=== PATIENT | female | born 1970 | race Caucasian/White ===

== ENCOUNTER 2022-01-04 20:33 | Emergency (ER) | payer BC ==
[2022-01-04 21:06] LABS: Absolute Neutrophil Ct (ANC) 4.55 x10^3/uL (1.4-6.9); Basophil (Absolute #) 0.05 x10^3/uL (0-0.4); Eosinophil % 3.6 % (0.00-5.0); Eosinophil (Absolute #) 0.27 x10^3/uL (0-0.5); Hematocrit 40.9 % (35-47); Hemoglobin 13.9 g/dL (12.0-16.0); Lymphocyte (Absolute #) 2.04 x10^3/uL (1.0-4.6); Lymphocytes % 27.4 % (24.0-44.0); Mean Cell Volume 90.9 fL (78-100); Mean Corpuscular Hemoglobin 30.9 pg (26-32); Mean Platelet Volume 11.7 fL (7.5-11.0); Monocyte (Absolute #) 0.51 x10^3/uL (0.0-1.3); Monocytes % 6.8 % (0.0-12.0); Neutrophil % 61.1 % (36.0-66.0); Platelet Count 183 x10^3/uL (150-450); Red Cell Distribution Width 12.4 % (11.5-14.0); White Blood Count 7.5 x10^3/uL (4.0-10.5)
[2022-01-04 21:23] LABS: ALBUMIN 3.8 g/dL (3.5-5.0); ALKALINE PHOSPHATASE 175 U/L (38-126); ANION GAP 14.3 MEQ/L (5-15); BLOOD UREA NITROGEN 14 mg/dL (7-17); CHLORIDE 103 mmol/L (98-107); Calcium 8.8 mg/dL (8.4-10.2); Carbon Dioxide 23 mmol/L (22-30); Creatinine 1 0.64 mg/dL (0.52-1.04); EST GLOMERULAR FILTRATION RATE > 60.0 ML/MIN; Glucose 266 mg/dL (74-106); Potassium 3.8 mmol/L (3.5-5.1); SGOT/AST 43 U/L (14-36); SGPT/ALT 28 U/L (0-35); SODIUM 136 mmol/L (137-145); Total Protein 7.2 g/dL (6.3-8.2)
[2022-01-04 21:25] LABS: Amphetamine,Urine NEGATIVE (NEGATIVE); Barbiturate,Urine NEGATIVE (NEGATIVE); Benzodiazepine,Urine NEGATIVE (NEGATIVE); Cocaine,Urine NEGATIVE (NEGATIVE); Methadone,Urine NEGATIVE (NEGATIVE); Opiate,Urine NEGATIVE (NEGATIVE); PCP,Urine NEGATIVE (NEGATIVE); THC,Urine NEGATIVE (NEGATIVE)
[2022-01-04 21:26] LABS: INR 0.97 (0.8-3.0); PROTIME 10.3 SECONDS (9.4-12.5); PTT 24.1 SECONDS (25.1-36.5)
[2022-01-04] MEDS ORDERED: BABY ASPIRIN 81 MG CHEW PO ONE (22:09)
[2022-01-04 22:49] LABS: Appearance SLIGHTLY CLOUDY (CLEAR); Bilirubin NEGATIVE (NEGATIVE); Glucose 500 mg/dL (NEGATIVE); Ketones NEGATIVE (NEGATIVE); Nitrite NEGATIVE (NEGATIVE); Protein,Urine Dip NEGATIVE (Negative); RBC NEGATIVE Ery/ul (0-5); Specific Gravity 1.025 (1.005-1.025); Urobilinogen 0.2 mg/dL (0-1)
[2022-01-04 22:50] LABS: Dipstick done @ ? MAIN LAB
[2022-01-04 22:52] LABS: Epithelial Cells FEW /HPF (FEW); Mucus SLIGHT /HPF (NEGATIVE); RBC 0-2 /HPF (0-2)
[2022-01-04 22:57] LABS: Urine Cultured Indicated? NO
[2022-01-04] MEDS ORDERED: Activase 100 MG IV STA (23:17)
--- NOTE | 2022-01-04 23:30 | ERPHSYRPT ---
- History of Present Illness Source: patient, other () Exam Limitations: other (Poor historian) Patient Subjective Stated Complaint: states that pt has had a few spells tonight and has been confused and slurring her words and had difficulty speaking at home. states she is feeling better now but is still does not feel right Triage Nursing Assessment: pt alert and oriented x4. answers questions approp. pt states she feels like shes having trouble coming up with some words. pt ambulatory with steady gait noted. respirations nonlabored. skin pink warm and dry. no facial droop noted. bilat upper and lower ext strength equal and wnl. Physician History: 51 yo wf w confusion and possible expressive aphasia beginning at approximately 20:00. Pt has a h/o DM/HTN/hyperlipidemia but denies CAD/CO/CVA/Tobacco use. She has no focal weakness/No facial droop/alert and oriented x3. Glucose >200 on POC accucheck upon arrival. Pt rushed to CT after IV access/blood draw. CT of head neg. CTA of head/neck ordered along w neuro consult. Pt had intermittant brief episodes of expressive aphasia w total resolution observed by my nurses. Neuro consult states before CTA of head/neck that pt possibly had a CVA but would hold off TPA while exam normal, which it was when she did the teleneuro consult. 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 Spoke w Dr. Garcia who stated that pt should receive TPA if symptomatic. Teleneuro consult restarted w Dr. Garcia deciding that pt should get tPA. Risks/benefits explained to pt including bleeding/hemorrhagic CVA/. Timing/Duration: other (1999) Severity: mild Character of Deficits: other (Intermittant expressive aphasia) Baseline/Normal Cognition: alert 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 Current Cognition: alert 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 Baseline Gait: walks w/o assistance Associated Symptoms: confusion, slurred speech, No fatigue, No fever, No chills, No loss of consciousness, No nausea, No vomiting, No weakness, No insomnia, No muscle spasms, No numbness/tingling in legs/feet, No paresthesia, No ringing in ears, No seizures, No trouble walking, No vision changes, No chest pain, No headache Allergies/Adverse Reactions: No Known Drug Allergies Allergy (Verified 09/27/22 21:08) Hx Tetanus, Diphtheria Vaccination/Date Given: No Hx Influenza Vaccination/Date Given: No Hx Pneumococcal Vaccination/Date Given: No Immunizations Up to Date: No Travel Risk - International Travel Have you traveled outside of the country in past 3 weeks: No - Coronavirus Screening Are you exhibiting any of the following symptoms?: No Close contact with a COVID-19 positive Pt in past 14-21 Days: No - Vaccine Status Have you recieved a Covid-19 vaccination: Yes 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: [employer] - Vaccination Dates Date of 2cond Vaccination (if applicable): unsure - Review of Systems Constitutional: No Symptoms Eyes: No Symptoms Ears, Nose, & Throat: No Symptoms Respiratory: No Symptoms Cardiac: No Symptoms Abdominal/Gastrointestinal: No Symptoms Genitourinary Symptoms: No Symptoms Musculoskeletal: No Symptoms Skin: No Symptoms Neurological: No Symptoms, Other (Intermittant expressive aphasia), No Focal Weakness, No Headache, No Irritability, No Lethargy, No Paralysis, No Parasthesi a, No Seizure, No Sensory Changes, No Speech Changes, No Tics, No Tremors, No Vertigo Psychological: No Symptoms Endocrine: No Symptoms Hematologic/Lymphatic: No Symptoms Immunological/Allergic: No Symptoms - Past Medical History Pertinent Past Medical History: Yes Cardiac History: High Cholesterol, Hypertension Endocrine Medical History: Diabetes Type II - Past Surgical History Past Surgical History: Yes Gastrointestinal: Cholecystectomy Female Surgical History: Section Other Surgical History: uterine ablation - Social History Smoking Status: Never smoker Exposure to second hand smoke: No Drug Use: none Patient Lives Alone: No - Nursing Vital Signs Nursing Vital Signs: Initial Vital Signs Temperature 98.2 F 01/04/22 20:39 Pulse Rate 91 H 01/04/22 20:39 Respiratory Rate 16 01/04/22 20:39 Blood Pressure 129/77 01/04/22 20:39 O2 Sat by Pulse Oximetry 97 01/04/22 20:39 Pain Scale Pain Intensity 0 WNL - Broussard Coma Scale Best Eye Response (Ann Marie): (4) open spontaneously Best Verbal Response (Ann Marie): (5) oriented Best Motor Response (Ann Marie): (6) obeys commands Broussard Total: 15 - Physical Exam General Appearance: no apparent distress, anxiety Eye Exam: bilateral eye: normal inspection, PERRL, EOMI Ears, Nose, Throat Exam: normal ENT inspection, TMs normal, pharynx normal, moist mucous membranes Neck Exam: normal inspection, non-tender, supple, full range of motion, No meningismus, No mass, No Brudzinski, No Kernig's Respiratory: normal breath sounds, lungs clear, airway intact Cardiovascular: regular rate/rhythm, normal heart sounds, normal peripheral pulses, capillary refill <2 sec, No murmur Gastrointestinal: soft, normal bowel sounds, No tenderness Back Exam: normal inspection, normal range of motion, No CVA tenderness, No vertebral tenderness Extremity Exam: normal inspection, normal range of motion Peripheral Pulses: carotid (R): 2+, carotid (L): 2+ Mental 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, 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, 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 Exam: normal hearing, normal speech, PERRL, No abnormal eye position, No abnormal gag reflex, No abnormal pupil position, No abnormal speech, No facial asymmetry, No facial droop, No facial paresthesias, No facial weakness, No gaze palsy, No hearing deficit (R), No hearing deficit (L), No tongue deviation to R, No tongue deviation to L, No tongue midline Motor/Sensory: no motor deficit, no sensory deficit, no pronator drift, negative Babinski's sign DTR: bicep (R): 2+, bicep (L): 2+ Skin Exam: normal color, warm, dry SpO2 Interpretation: normal SpO2: 98 O2 Delivery: Room Air - Course Nursing assessment & vital signs reviewed: Yes EKG Interpreted by Me: RATE (NSr/Rate75/Normal QT-QTc/Qwave 3-AVF/Low voltage/Nonspecific Twave abnormality) Ordered Tests: Active Orders 24 hr Category Date Time Status EKG-ER Only STAT Care 01/04/22 20:[address] ANGIOGRAPHY NECK [CT] Stat Exams 01/04/22 21:30 Taken CTA HEAD W AND/OR WO CONTRAST [CT] Stat Exams 01/04/22 21:27 Taken HEAD WITH CONTRAST [CT] Stat Exams 01/04/22 20:47 Taken CBC W DIFF Stat Lab 01/04/22 21:03 Completed CMP Stat Lab 01/04/22 21:03 Completed POCT GLUCOSE Stat Lab 01/04/22 20:43 Completed PROTIME WITH INR Stat Lab 01/04/22 21:03 Completed PTT Stat Lab 01/04/22 21:03 Completed TROPONIN Q4H Lab 01/04/22 21:03 Completed UA W/RFX CULTURE Stat Lab 01/04/22 22:17 Completed Urine Triage Profile Stat Lab 01/04/22 21:03 Completed Medication Summary Discontinued Medications Generic Name Dose Route Start Last Admin Trade Name Alan PRN Reason Stop Dose Admin Alteplase, Recombinant 90 mg 01/04/22 23:17 01/04/22 23:28 Alteplase 100 Mg Vial IV 01/04/22 23:18 90 mg STAT STA Administration Aspirin 324 mg 01/04/22 22:09 01/04/22 22:10 Aspirin 81 Mg Tab.Chew PO 01/04/22 22:10 324 mg STAT ONE Administration Lab/Rad Data: Laboratory Result Diagrams 01/04/22 21:03 01/04/22 21:03 Laboratory Results 01/04/22 01/04/22 01/04/22 Range/Units 22:17 21:03 21:03 WBC (4.0-10.5) x10^3/uL RBC (4.1-5.4) x10^6/uL Hgb (12.0-16.0) g/dL Hct (35-47) % MCV (78-100) fL MCH (26-32) pg MCHC (32-36) g/dL RDW (11.5-14.0) % Plt Count (150-450) x10^3/uL MPV (7.5-11.0) fL Gran % (36.0-66.0) % Immature Gran % (Auto) (0.00-0.4) % Nucleat RBC Rel Count (0.00-0.1) % Eos # (Auto) (0-0.5) x10^3/uL Immature Gran # (Auto) (0.00-0.03) x10^3u/L Absolute Lymphs (auto) (1.0-4.6) x10^3/uL Absolute Monos (auto) (0.0-1.3) x10^3/uL Absolute Nucleated RBC (0.00-0.01) x10^3u/L Lymphocytes % (24.0-44.0) % Monocytes % (0.0-12.0) % Eosinophils % (0.00-5.0) % Basophils % (0.0-0.4) % Absolute Granulocytes (1.4-6.9) x10^3/uL Basophils # (0-0.4) x10^3/uL PT 10.3 (9.4-12.5) SECONDS INR 0.97 (0.8-3.0) APTT 24.1 L (25.1-36.5) SECONDS Sodium (137-145) mmol/L Potassium (3.5-5.1) mmol/L Chloride (98-107) mmol/L Carbon Dioxide (22-30) mmol/L Anion Gap (5-15) MEQ/L BUN (7-17) mg/dL Creatinine (0.52-1.04) mg/dL Estimated GFR ML/MIN Glucose (74-106) mg/dL POC Glucometer (74 to 106) mg/dL Calcium (8.4-10.2) mg/dL Total Bilirubin (0.2-1.3) mg/dL AST (14-36) U/L ALT (0-35) U/L Alkaline Phosphatase (38-126) U/L Troponin I < 0.012 (0.000-0.034) ng/mL Serum Total Protein (6.3-8.2) g/dL Albumin (3.5-5.0) g/dL Urinalys Dipstick Clnc MAIN LAB Urine Color YELLOW (YELLOW) Urine Appearance SLIGHTLY CLOUDY (CLEAR) Urine pH 7.0 (5-6) Ur Specific [place]ner 1.025 (1.005-1.025) POC Urine Protein Conf NEGATIVE (Negative) Urine Ketones NEGATIVE (NEGATIVE) Urine Nitrite NEGATIVE (NEGATIVE) Urine Bilirubin NEGATIVE (NEGATIVE) Urine Urobilinogen 0.2 (0-1) mg/dL Urine Leukocytes NEGATIVE (NEGATIVE) Urine WBC (Auto) NONE (0-5) /HPF Urine RBC (Auto) 0-2 (0-2) /HPF U Epithel Cells (Auto) FEW (FEW) /HPF Urine Bacteria (Auto) NONE (NEGATIVE) /HPF Urine RBC NEGATIVE (0-5) Flavio/ul Calcium Oxalate Crystal 11-25 (NEGATIVE) /HPF Urine Mucus (Auto) SLIGHT (NEGATIVE) /HPF Ur Culture Indicated? NO Urine Glucose 500 (NEGATIVE) mg/dL Urine Opiates Level (NEGATIVE) Ur Methadone (NEGATIVE) Urine Barbiturates (NEGATIVE) Ur Phencyclidine (PCP) (NEGATIVE) Urine Amphetamine (NEGATIVE) U Benzodiazepine Level (NEGATIVE) Urine Cocaine (NEGATIVE) Urine Marijuana (THC) (NEGATIVE) 01/04/22 01/04/22 01/04/22 Range/Units 21:03 21:03 21:03 WBC 7.5 (4.0-10.5) x10^3/uL RBC 4.50 (4.1-5.4) x10^6/uL Hgb 13.9 (12.0-16.0) g/dL Hct 40.9 (35-47) % MCV 90.9 (78-100) fL MCH 30.9 (26-32) pg MCHC 34.0 (32-36) g/dL RDW 12.4 (11.5-14.0) % Plt Count 183 (150-450) x10^3/uL MPV 11.7 H (7.5-11.0) fL Gran % 61.1 (36.0-66.0) % Immature Gran % (Auto) 0.4 (0.00-0.4) % Nucleat RBC Rel Count 0.0 (0.00-0.1) % Eos # (Auto) 0.27 (0-0.5) x10^3/uL Immature Gran # (Auto) 0.03 (0.00-0.03) x10^3u/L Absolute Lymphs (auto) 2.04 (1.0-4.6) x10^3/uL Absolute Monos (auto) 0.51 (0.0-1.3) x10^3/uL Absolute Nucleated RBC 0.00 (0.00-0.01) x10^3u/L Lymphocytes % 27.4 (24.0-44.0) % Monocytes % 6.8 (0.0-12.0) % Eosinophils % 3.6 (0.00-5.0) % Basophils % 0.7 (0.0-0.4) % Absolute Granulocytes 4.55 (1.4-6.9) x10^3/uL Basophils # 0.05 (0-0.4) x10^3/uL PT (9.4-12.5) SECONDS INR (0.8-3.0) APTT (25.1-36.5) SECONDS Sodium 136 L (137-145) mmol/L Potassium 3.8 (3.5-5.1) mmol/L Chloride 103 (98-107) mmol/L Carbon Dioxide 23 (22-30) mmol/L Anion Gap 14.3 (5-15) MEQ/L BUN 14 (7-17) mg/dL Creatinine 0.64 (0.52-1.04) mg/dL Estimated GFR > 60.0 ML/MIN Glucose 266 H (74-106) mg/dL POC Glucometer (74 to 106) mg/dL Calcium 8.8 (8.4-10.2) mg/dL Total Bilirubin 0.50 (0.2-1.3) mg/dL AST 43 H (14-36) U/L ALT 28 (0-35) U/L Alkaline Phosphatase 175 H (38-126) U/L Troponin I (0.000-0.034) ng/mL Serum Total Protein 7.2 (6.3-8.2) g/dL Albumin 3.8 (3.5-5.0) g/dL Urinalys Dipstick Clnc Urine Color (YELLOW) Urine Appearance (CLEAR) Urine pH (5-6) Ur Specific Sayner (1.005-1.025) POC Urine Protein Conf (Negative) Urine Ketones (NEGATIVE) Urine Nitrite (NEGATIVE) Urine Bilirubin (NEGATIVE) Urine Urobilinogen (0-1) mg/dL Urine Leukocytes (NEGATIVE) Urine WBC (Auto) (0-5) /HPF Urine RBC (Auto) (0-2) /HPF U Epithel Cells (Auto) (FEW) /HPF Urine Bacteria (Auto) (NEGATIVE) /HPF Urine RBC (0-5) Flavio/ul Calcium Oxalate Crystal (NEGATIVE) /HPF Urine Mucus (Auto) (NEGATIVE) /HPF Ur Culture Indicated? Urine Glucose (NEGATIVE) mg/dL Urine Opiates Level NEGATIVE (NEGATIVE) Ur Methadone NEGATIVE (NEGATIVE) Urine Barbiturates NEGATIVE (NEGATIVE) Ur Phencyclidine (PCP) NEGATIVE (NEGATIVE) Urine Amphetamine NEGATIVE (NEGATIVE) U Benzodiazepine Level NEGATIVE (NEGATIVE) Urine Cocaine NEGATIVE (NEGATIVE) Urine Marijuana (THC) NEGATIVE (NEGATIVE) 01/04/22 Range/Units 20:43 WBC (4.0-10.5) x10^3/uL RBC (4.1-5.4) x10^6/uL Hgb (12.0-16.0) g/dL Hct (35-47) % MCV (78-100) fL MCH (26-32) pg MCHC (32-36) g/dL RDW (11.5-14.0) % Plt Count (150-450) x10^3/uL MPV (7.5-11.0) fL Gran % (36.0-66.0) % Immature Gran % (Auto) (0.00-0.4) % Nucleat RBC Rel Count (0.00-0.1) % Eos # (Auto) (0-0.5) x10^3/uL Immature Gran # (Auto) (0.00-0.03) x10^3u/L Absolute Lymphs (auto) (1.0-4.6) x10^3/uL Absolute Monos (auto) (0.0-1.3) x10^3/uL Absolute Nucleated RBC (0.00-0.01) x10^3u/L Lymphocytes % (24.0-44.0) % Monocytes % (0.0-12.0) % Eosinophils % (0.00-5.0) % Basophils % (0.0-0.4) % Absolute Granulocytes (1.4-6.9) x10^3/uL Basophils # (0-0.4) x10^3/uL PT (9.4-12.5) SECONDS INR (0.8-3.0) APTT (25.1-36.5) SECONDS Sodium (137-145) mmol/L Potassium (3.5-5.1) mmol/L Chloride (98-107) mmol/L Carbon Dioxide (22-30) mmol/L Anion Gap (5-15) MEQ/L BUN (7-17) mg/dL Creatinine (0.52-1.04) mg/dL Estimated GFR ML/MIN Glucose (74-106) mg/dL POC Glucometer 268 H (74 to 106) mg/dL Calcium (8.4-10.2) mg/dL Total Bilirubin (0.2-1.3) mg/dL AST (14-36) U/L ALT (0-35) U/L Alkaline Phosphatase (38-126) U/L Troponin I (0.000-0.034) ng/mL Serum Total Protein (6.3-8.2) g/dL Albumin (3.5-5.0) g/dL Urinalys Dipstick Clnc Urine Color (YELLOW) Urine Appearance (CLEAR) Urine pH (5-6) Ur Specific [place]ner (1.005-1.025) POC Urine Protein Conf (Negative) Urine Ketones (NEGATIVE) Urine Nitrite (NEGATIVE) Urine Bilirubin (NEGATIVE) Urine Urobilinogen (0-1) mg/dL Urine Leukocytes (NEGATIVE) Urine WBC (Auto) (0-5) /HPF Urine RBC (Auto) (0-2) /HPF U Epithel Cells (Auto) (FEW) /HPF Urine Bacteria (Auto) (NEGATIVE) /HPF Urine RBC (0-5) Flavio/ul Calcium Oxalate Crystal (NEGATIVE) /HPF Urine Mucus (Auto) (NEGATIVE) /HPF Ur Culture Indicated? Urine Glucose (NEGATIVE) mg/dL Urine Opiates Level (NEGATIVE) Ur Methadone (NEGATIVE) Urine Barbiturates (NEGATIVE) Ur Phencyclidine (PCP) (NEGATIVE) Urine Amphetamine (NEGATIVE) U Benzodiazepine Level (NEGATIVE) Urine Cocaine (NEGATIVE) Urine Marijuana (THC) (NEGATIVE) - Progress Progress Note: 01/05/22 03:[address] Matos at [facility] 90mg IV tPA(9mg bolus, 81mg over 1 hour) Small amount of blood in sputum at end of drip/No overt hemorrhage Intermittent expressive aphasia observed by nurses and Dr. Garcia during 2nd tele consult Pt stable w good vital signs when air ambulance assumed care of pt No focal weakness in ER during entire stay 01/05/22 03:42 Counseled pt/family regarding: lab results, diagnosis, need for follow-up, rad results - Departure Departure Disposition: Transfer Clinical Impression: CVA (cerebral vascular accident) Condition: Stable Critical Care Time: Yes Critical Care Time(excluding separately billable procedures): Critical 30-74 mins Referrals: SHENG RAMOS [Primary Care Provider] - Follow up/PCP as directed
[2022-01-05 00:52] VITALS: BP 139/82; PULSE 86
[2022-01-05 03:42] VITALS: O2SAT 98
--- NOTE | 2022-01-05 23:03 | XRAY ---
Exam: CT angiography of the neck with IV contrast from 01/04/2022. CTDI: 18.22 mGy Comparison: CT of the head without IV contrast from earlier this evening on 01/04/2022. Indication: 51 year-old female with stroke-like symptoms; effective aphasia; stroke protocol. Technique: CT angiography of the neck with 100 ML's of Isovue 370 contrast was performed in the axial plane from the level of the aortic arch superiorly to the level of the [place]. Reconstructed coronal and sagittal images were created and reviewed. 3-D reconstructed volume rendered images of the carotid arteries were created at the workstation by the time study technologist. Findings: Right common carotid artery: No significant stenosis, dissection, or occlusion is seen. Right internal carotid artery: Extracranial segment is patent with no significant stenosis (0% stenosis by NASCET criteria). There is no dissection or occlusion. Right external carotid artery: No occlusion or significant stenosis. Left common carotid artery: No significant stenosis, dissection, or occlusion. Left internal carotid artery: Extracranial segment is patent with no significant stenosis (0% stenosis by NASCET criteria). There is no dissection or occlusion. Left external carotid artery: No occlusion or significant stenosis is seen. Right vertebral artery: No significant stenosis, dissection, or occlusion. Left vertebral artery: No significant stenosis, dissection, or occlusion. Soft tissues: Unremarkable. 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 There is also moderate anterior vertebral endplate spurring from C3-C4 through C5-C6. Impression: 1. No occlusion or significant stenosis in the arteries of the neck. 2. 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
--- NOTE | 2022-01-05 23:19 | XRAY ---
Exam: CTA of the head with IV contrast from 01/04/2022. CTDI: 18.22 mGy Comparison: CT of the head without IV contrast from earlier this evening on 01/04/2022. Indication: 51-year-old female with stroke-like symptoms; effective aphasia. Technique: CTA angiography of the head was obtained with 100 ML's of Isovue 370 IV contrast in the axial plane. Reconstructed coronal and sagittal images were created and reviewed. 3-D volume rendered reconstructed images were created at the CT workstation by the learning technologist. Findings: ANTERIOR CIRCULATION: Right internal carotid artery: Intracranial segment is patent with no significant stenosis. No aneurysm is seen. Right middle cerebral artery: No occlusion, significant stenosis, or aneurysm is seen. Right anterior cerebral artery: No occlusion, significant stenosis, or aneurysm is seen. Left internal carotid artery: Intracranial segment is patent without significant stenosis or aneurysm. Left middle cerebral artery: Complete cutoff/occlusion of the origin of the posterior left M2 branch. Left anterior cerebral artery: No occlusion or significant stenosis or aneurysm is seen. POSTERIOR CIRCULATION: Right vertebral artery: No occlusion, significant stenosis, or aneurysm is seen. Left vertebral artery: No occlusion, significant stenosis, or aneurysm is seen. Basilar artery: No occlusion, significant stenosis, or aneurysm is seen. Right posterior cerebral artery: No occlusion, significant stenosis, or aneurysm is seen. Left posterior cerebral artery: No occlusion, significant stenosis, or aneurysm is seen. Impression: 1. Complete cutoff/occlusion of the origin of the posterior left M2 branch.
== END 2022-01-05 01:17 | disposition short-term general hospital (02) ==
LOC: ED 20:33
DX: I63.9 Cerebral infarction, unspecified (principal); R47.01 Aphasia; I10 Essential (primary) hypertension; R41.0 Disorientation, unspecified; E11.9 Type 2 diabetes mellitus without complications; E78.5 Hyperlipidemia, unspecified
CPT/HCPCS: 36000; 36415; 70460; 70496; 70498; 80053; 80307; 81015; 82947; 84484; 85025; 85610; 85730; 93005; 96374; 99285; 99291; J2997; A9270-GY